=== PATIENT | male | born 1935 | race Caucasian/White ===

== ENCOUNTER 2020-05-23 11:58 | Inpatient (IN) | payer MEDICARE, OTHER ==
[~2020-05-23] VITALS: Ht 185.4 cm; Wt 68.3 kg
--- NOTE | 2020-05-23 00:30 | NUR ---
pt refused any pain for his back med except for aspirin. informed aspirin is on his list in the morning stated will not take any.
[2020-05-23] MEDS ORDERED: SODIUM CHLORIDE 0.9% 1,000 ML IVB ONE (12:30)
[2020-05-23 12:51] LABS: Basophils # (auto) 0.1 10 ^3/uL (0-0.2); Basophils % (auto) 0.7 % (0.0-2.0); Eosinophils # (auto) 0 10 ^3/uL (0-0.8); Eosinophils % (auto) 0.6 % (0.0-7.0); Hematocrit 43.2 % (41.0-53.0); Hemoglobin 14.4 g/dL (13.5-17.5); Lymphocytes # (auto) 1.5 10 ^3/uL (0.4-5.4); Lymphocytes % (auto) 19.5 % (10.0-50.0); Mean Corpuscular Hemoglobin 30.8 pg (28.0-32.0); Mean Corpuscular Hgb Conc. 33.2 g/dL (32.0-36.0); Mean Corpuscular Volume 92.6 fL (80.0-100.0); Monocytes # (auto) 0.6 10 ^3/uL (0-1.3); Monocytes % (auto) 8.4 % (0.0-12.0); Neutrophils # (auto) 5.4 10 ^3/uL (1.6-8.6); Neutrophils % (auto) 70.8 % (37.0-80.0); Platelet Count (auto) 211 10^3/uL (140-450); Red Blood Cells 4.67 10^6/uL (4.5-5.90); Red Cell Distribution Width 13.9 % (11.8-14.3); White Blood Cell 7.7 10^3/uL (4.4-10.8)
[2020-05-23 13:05] LABS: Albumin 3.4 g/dL (3.4-5.0); Anion Gap 8 (5-15); Blood Urea Nitrogen 21 mg/dL (7-18); Calcium 9.1 mg/dL (8.5-10.1); Carbon Dioxide 25 mmol/L (21-32); Chloride 112 mmol/L (98-107); Glucose 126 mg/dL (74-106); Magnesium 2.5 mg/dL (1.6-2.6); Potassium 3.9 mmol/L (3.5-5.1); Sodium 145 mmol/L (136-145)
[2020-05-23 13:11] LABS: Alanine Aminotransferase 54 U/L (16-61); Alkaline Phosphatase 74 U/L (45-117); Aspartate Aminotransferase 25 U/L (15-37); BUN/Creatinine Ratio 13.5; Bilirubin, Total 0.7 mg/dL (0.2-1.0); GFR African American 55 mL/min; GFR Non-African American 45 mL/min; Total Protein 6.3 g/dL (6.4-8.2)
[2020-05-23 13:30] LABS: INR 1.05 (0.9-1.15); Partial Thromboplastin Time 23.7 sec (23.0-31.2)
[2020-05-23] MEDS ORDERED: MORPHINE SULF INJ 2 MG/ML SYRINGE 1ML IV PRN ×3 (13:45→14:30)
[2020-05-23] MEDS ORDERED: NITROGLYCERIN 0.4 MG SL TAB SL PRN ×2 (13:45→14:30)
[2020-05-23] MEDS ORDERED: SIL25T PO (14:11)
[2020-05-23] MEDS ORDERED: SIMV-13 PO (14:11)
[2020-05-23] MEDS ORDERED: ASPI325T4 PO (14:11)
[2020-05-23] MEDS ORDERED: LACTATED RINGER'S 1,000 ML IV ONE (14:15)
[2020-05-23] MEDS ORDERED: METOPROLOL SUCCINATE XL 50 MG TAB PO ONE (14:15)
[2020-05-23] MEDS ORDERED: ATORVASTATIN 20 MG TAB PO ONE (14:15)
[2020-05-23] MEDS ORDERED: SODIUM CHLORIDE 0.9% 1,000 ML IV SCH (14:15)
[2020-05-23] MEDS ORDERED: LORazepam 0.5 MG TAB PO PRN (14:30)
[2020-05-23] MEDS ORDERED: ACETAMINOPHEN 325 MG TAB PO PRN (14:30)
[2020-05-23] MEDS ORDERED: ALUM & MAG HYDROX-SIMETH LIQ(MAALOX) 30 ML PO ONE (14:30)
[2020-05-23] MEDS ORDERED: ONDANSETRON HCL 4 MG/2 ML VIAL IV PRN (14:30)
[2020-05-23] MEDS ORDERED: HYDROcodone-ACET 5/325MG TAB PO PRN (14:30)
[2020-05-23] MEDS: SODIUM CHLORIDE 0.9% 1,000 ML IV SCH ×2 (15:00→22:28)
--- NOTE | 2020-05-23 21:00 | NUR ---
got to floor from ED. no sign of distress/pain at this time
[2020-05-23 21:27] LABS: HDL Cholesterol 69 mg/dL (40-59); LDL Cholesterol 55 mg/dL (< 100); Triglycerides 62 mg/dL (< 150)
[2020-05-23 21:37] LABS: Cholesterol 125 mg/dL (< 200)
[2020-05-23] MEDS: ATORVASTATIN 20 MG TAB PO SCH ×3 (22:00→22:31)
[2020-05-23] MEDS ORDERED: ATORVASTATIN 20 MG TAB PO SCH (22:00)
[2020-05-23 22:10] VITALS: BP 126/69
[2020-05-24 05:00] VITALS: BP 138/88
--- NOTE | 2020-05-24 07:25 | NUR ---
endorsed care to day RN,no sign of distress at this time
[2020-05-24 09:00] VITALS: BP 148/97
[2020-05-24] MEDS: ENOXAPARIN SOD 40 MG/0.4 ML SYRINGE SC SCH (09:53)
[2020-05-24] MEDS: ASPirin 325 MG TAB PO SCH (09:53)
[2020-05-24] MEDS: DOCUSATE SOD 100 MG CAP PO SCH (09:54)
[2020-05-24] MEDS ORDERED: ASPirin 81 mg TAB PO SCH (10:00)
[2020-05-24] MEDS: METOPROLOL SUCCINATE XL 50 MG TAB PO SCH (10:00)
[2020-05-24 10:06] LABS: Alcohol, Urine < 3.0 mg/dL (0-10); Amphetamine Screen, Urine NEGATIVE (NEGATIVE); Barbiturate Scree,Urine NEGATIVE (NEGATIVE); Benzodiazephine Screen, Urine NEGATIVE (NEGATIVE); Cannabinoid Screen, Urine NEGATIVE (NEGATIVE); Cocaine Screen, Urine NEGATIVE (NEGATIVE); Opiate Scree,Urine NEGATIVE (NEGATIVE); Phencyclidine Screen, Urine NEGATIVE (NEGATIVE); Urine Bacteria NONE SEEN /hpf (None Seen); Urine Blood Negative /uL (Negative); Urine WBC 1 /hpf (0 - 3)
[2020-05-24 12:51] VITALS: BP 155/95
[2020-05-24] MEDS: SODIUM CHLORIDE 0.9% 1,000 ML IV SCH ×2 (13:32→20:56)
[2020-05-24 16:41] VITALS: BP 124/75
[2020-05-24 20:00] VITALS: BP 153/99
--- NOTE | 2020-05-24 20:30 | NUR ---
Opening Shift Note Care endorsed from Laury SCHWARZ. Assumed care of patient, awake and alert. No S/S of distress/SOB or pain. Bed locked in lowest position, side rails up X2, call light within reach. Instructed on POC and to call for assist PRN, will continue to monitor for changes Q1hr and PRN.
[2020-05-24] MEDS: ATORVASTATIN 20 MG TAB PO SCH (20:54)
[2020-05-24 22:00] VITALS: BP 153/99
[2020-05-25 05:00] VITALS: BP 150/87
[2020-05-25] MEDS: SODIUM CHLORIDE 0.9% 1,000 ML IV SCH (05:50)
--- NOTE | 2020-05-25 06:52 | NUR ---
Closing note Care endorsed to Laury SCHWARZ. Patient resting in high fowlers, side rails up X2, bed locked in lowest position, call light within reach. No signs of distress or SOB.
--- NOTE | 2020-05-25 07:30 | NUR ---
Opening Shift Note Assumed care of patient, who is alert and oriented x4. Respirations are even and unlabored. No S/S of distress/SOB. Patient reporting 10/10 severe headache. Patient states that he takes Aspiring 650mg PO HS for pain. Attempted to discuss pain management options with patient. Patient refusing PRN pain medications and is insisting on Aspirin 650mg PO. Will discuss with MD. Bed is low, locked with 2x side rails up. Call light is within reach. Instructed on POC and to call for assist PRN, will continue to monitor for changes Q1hr and PRN. Addendum: 05/25/20 at 0825 by Laury Sweeney RN RN correction: Aspirin
--- NOTE | 2020-05-25 07:45 | NUR ---
Pain Patient continues to refuse PRN medications that are ordered for pain. Patient stating "I know my body more than you do, I've been two Aspirin 325mg before bed for a long time". 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 Spoke to Dr. Durant. Received orders for Aspirin. Orders read back to verify. Will implement.
[2020-05-25] MEDS ORDERED: ASPirin-EC 325mg tab PO ONE (08:30)
[2020-05-25] MEDS: ASPirin 325 MG TAB PO SCH (08:30)
[2020-05-25 09:00] VITALS: BP 164/93
[2020-05-25] MEDS: METOPROLOL SUCCINATE XL 50 MG TAB PO SCH (09:21)
[2020-05-25] MEDS: DOCUSATE SOD 100 MG CAP PO SCH (09:21)
[2020-05-25] MEDS: ENOXAPARIN SOD 40 MG/0.4 ML SYRINGE SC SCH (09:21)
--- NOTE | 2020-05-25 09:21 | NUR ---
Refusing morning medications Patient refusing 1000 scheduled medications. Patient states that he is not going to take any of our medications. Attempted to educate patient on importance of medications. Patient continues to refuse.
[2020-05-25 10:20] VITALS: BP 164/93
--- NOTE | 2020-05-25 11:57 | NUR ---
Discharge instructions given as ordered. Encourage to follow up with PMD as instructed. Encouraged patient to call PCP and soa integration architect for one week follow up appointment. All questions and concerns addressed. Patient verbalized understanding. IV removed with catheter intact, pressure dressing applied. Telemetry unit returned to ICU. Patient taken to vehicle via wheelchair with all personal belongings, accompanied by staff and family member. No distress noted at time of departure.
== END 2020-05-25 12:00 | disposition home or self-care (01) | DRG 312 ==
LOC: EDBD 11:58 → ER 11:58 → TELE 11:59 → TELE-CENTR 20:58
PROVIDERS: ADMIT Hospitalist; ATTEND Family Medicine
DX: R55 Syncope and collapse (principal); Z68.1 Body mass index [BMI] 19.9 or less, adult; Z86.73 Personal history of transient ischemic attack (TIA), and cerebral infarction without residual deficits; E78.5 Hyperlipidemia, unspecified; I12.9 Hypertensive chronic kidney disease with stage 1 through stage 4 chronic kidney disease, or unspecified chronic kidney disease; N18.9 Chronic kidney disease, unspecified; M48.02 Spinal stenosis, cervical region; M19.90 Unspecified osteoarthritis, unspecified site; Z88.0 Allergy status to penicillin; N52.9 Male erectile dysfunction, unspecified; I10 Essential (primary) hypertension; F55.8 Abuse of other non-psychoactive substances; Z71.89 Other specified counseling
CPT/HCPCS: 36415; 70450; 70551; 71045; 72125; 80053; 80061; 80307; 81001; 83036; 83735; 84484; 85025; 85610; 85730; 87086; 93005; 93306; 93886; 95819; 96360; 96361; G0378